=== PATIENT | female | born 1960 | race Caucasian/White ===

== ENCOUNTER 2016-08-06 20:50 | Emergency (ER) | payer MEDICAID, OTHER ==
[~2016-08-06] VITALS: Ht 167.6 cm; Wt 90.7 kg
[~2016-08-06 20:50] MED LIST: ACET500C4 PO
[2016-08-06] MEDS ORDERED: IV SET PRIMARY 1 EA INFUS.SET MC ONE (21:02)
[2016-08-06] MEDS ORDERED: IV NS 0.9% 1,000 ML ONE (21:02)
--- NOTE | 2016-08-06 21:14 | NUR ---
bib ra from home for flu like symptoms and headache, rehana is verbally responsive, a/ox 4, able to ambulate to bed, placed on monitor, no other medical complaints noted
[2016-08-06 21:17] LABS: BASOPHILS # (AUTO) 0.6 /CMM (0.0-0.2); BASOPHILS % (AUTO) 3.7 % (0.0-2.0); EOSINOPHILS # (AUTO) 0.1 /CMM (0.0-0.7); EOSINOPHILS % (AUTO) 0.9 % (0.0-6.0); HEMATOCRIT 42 % (33-45); HEMOGLOBIN 14.1 g/dL (11.5-14.8); LYMPHOCYTES # (AUTO) 2.4 /CMM (0.8-4.8); LYMPHOCYTES % (AUTO) 16.1 % (20.0-44.0); MEAN CORPUSCULAR HEMOGLOBIN 29 PG (26.0-33.0); MEAN CORPUSCULAR HGB CONC 34 g/dl (31.0-36.0); MEAN CORPUSCULAR VOLUME 86 fL (82-100); MONOCYTES % (AUTO) 6.9 % (2.0-12.0); NEUTROPHILS # (AUTO) 10.9 /CMM (1.8-8.9); NEUTROPHILS % (AUTO) 72.4 % (43.0-81.0); PLATELET COUNT (AUTO) 348 /CMM (150-450); RDW COEFFICIENT OF VARIATION 12.8 (11.5-15.0); RED BLOOD CELL COUNT(AUTO) 4.83 MIL/uL (4.0-5.2)
[2016-08-06] MEDS ORDERED: IBUPROFEN 600 MG TABLET PO ONE ×2 (21:20→21:30)
[2016-08-06 21:25] LABS: CALCIUM, SERUM 9.2 mg/dL (8.5-10.1); CARBON DIOXIDE 28 mmol/L (21-32); CHLORIDE 102 mmol/L (98-107); GLUCOSE 112 mg/dL (74-106); POTASSIUM 4.3 mmol/L (3.5-5.1); SODIUM SERUM 139 mmol/L (136-145); UREA NITROGEN, BLOOD 15 mg/dL (7-18)
[2016-08-06 21:30] LABS: ALANINE AMINOTRANSFERASE 42 U/L (12-78); ALKALINE PHOSPHATASE 96 U/L (46-116); ASPARTATE AMINOTRANSFERASE 20 U/L (15-37); BILIRUBIN,DIRECT 0.1 mg/dL (0.0-0.2); BILIRUBIN,TOTAL 0.5 mg/dL (0.2-1.0); TOTAL PROTEIN, SERUM 8.6 g/dL (6.4-8.2)
[2016-08-06] MEDS ORDERED: IV NS 0.9% 1,000 ML BAG IV ONE (21:30)
[2016-08-06 21:32] LABS: TROPONIN I < 0.017 ng/mL (0.00-0.056)
[2016-08-06] MEDS ORDERED: IV NS 0.9% 250 ML IV ONE (21:50)
[2016-08-06] MEDS ORDERED: CT SWABBABLE VALVE TRANS SET 1 EA INFUS.SET MC ONE (21:50)
[2016-08-06] MEDS ORDERED: IOHEXOL-300 100 ML VIAL IV ONE (21:50)
--- NOTE | 2016-08-06 22:58 | NUR ---
Patient discharged to home in stable condition. Written and verbal after care instructions given. Patient verbalizes understanding of instruction. IV removed. Catheter intact and site benign. Pressure and 4x4 applied to site. No bleeding noted. NAD NOTED UPON DISCHARGE, FAMILY AT BEDSIDE, WILL FOLLOW UP WITH PMD FOR FOLLOW UP, RX GIVEN AND NO QUESTIONS NOTED.
[2016-08-06 22:59] VITALS: BP 157/68
== END 2016-08-06 23:00 | disposition home or self-care (01) ==
LOC: ER 20:50
DX: J18.9 Pneumonia, unspecified organism (principal); I10 Essential (primary) hypertension
CPT/HCPCS: 36415; 71010; 71260; 80048; 80076; 83605; 84484; 85025; 87040 ×2; 93005; 96360; 99285; A4606; J7030; J7050; Q9967; Z7610